=== PATIENT | male | born 1965 | race Caucasian/White ===

== ENCOUNTER 2018-11-20 16:32 | Observation (INO) | payer BC, OTHER ==
[~2018-11-20] VITALS: Ht 182.9 cm; Wt 60.2 kg
[~2018-11-20 16:32] MED LIST: ALBU8.5H8 INH; KEN1O TOP
[2018-11-20] MEDS ORDERED: ASPIRIN 81 MG TAB PO STA (17:10)
[2018-11-20] MEDS ORDERED: NITROGLYCERIN 2% 1 GM OINT PKT TD STA (17:10)
[2018-11-20] MEDS ORDERED: NITROGLYCERIN (SL) 0.4 MG TAB SL PRN (17:30)
[2018-11-20] MEDS ORDERED: ACETAMINOPHEN 325 MG TAB PO ONE (20:00)
[2018-11-20] MEDS ORDERED: ONDANSETRON 4 MG INJ IV PRN (20:30)
[2018-11-20] MEDS ORDERED: ACETAMINOPHEN 325 MG TAB PO PRN (20:30)
--- NOTE | 2018-11-20 20:50 | ERD ---
ER Documentation Chief Complaint Chief Complaint CHEST PAIN - SENT BY PCP FOR EVALUATION HPI Patient is a 53-year-old male with coronary disease who presents with chest pain. He said that he has had chest pain for the past 3 to 4 days. He describes it as a 6 out of 10. He tried Motrin. The pain is been constant and left-sided. He feels like it is a pinching type pain. He was sent by his primary doctor for chest pain and admission. He does not member the name of the doctor. ROS All systems reviewed and are negative except as per history of present illness. Medications Home Meds Reported Medications Albuterol Sulfate* (Proair HFA*) 8.5 Gm Hfa.aer.ad, 2 PUFF INH Q4, INH 05/05/15 Triamcinolone Acetonide* (Kenalog*) 0.1%-15GM Oint, 1 APPLIC TOP BID PRN for ITCHING, EA 05/05/15 Allergies Allergies: Coded Allergies: No Known Allergy (Unverified , 05/05/15) PMhx/Soc History of Surgery: Yes (APPENDECTOMY, HERNIA) Anesthesia Reaction: No Hx Neurological Disorder: No Hx Respiratory Disorders: Yes (ASTHMA) Hx Cardiac Disorders: Yes ("HEART ATTACK") Hx Psychiatric Problems: No Hx Miscellaneous Medical Probl: No Hx Alcohol Use: No Hx Substance Use: No Hx Tobacco Use: Yes (FORMER) Smoking Status: Current some day smoker FmHx Family History: coronary disease Physical Exam Vitals Vital Signs Date Temp Pulse Resp B/P (MAP) Pulse Ox O2 O2 Flow FiO2 Time Delivery Rate 11/20/18 88 19 114/84 98 Room Air 19:18 (94) 11/20/18 107 16 149/99 99 Room Air 17:08 (116) 11/20/18 97.8 93 16 125/70 97 17:01 (88) Physical Exam Const: No acute distress Head: Atraumatic Eyes: Normal Conjunctiva ENT: Normal External Ears, Nose and Mouth. Neck: Full range of motion. No meningismus. Resp: Clear to auscultation bilaterally Cardio: Regular rate and rhythm, no murmurs Abd: Soft, non tender, non distended. Normal bowel sounds Skin: No petechiae or rashes Back: No midline or flank tenderness Ext: No cyanosis, or edema Neur: Awake and alert Psych: Normal Mood and Affect Result Diagram: 5/24/19 1737 11/20/18 1737 Results 24 hrs Laboratory Tests Test 11/20/18 17:37 White Blood Count 6.7 10^3/ul Red Blood Count 5.23 10^6/ul Hemoglobin 14.6 g/dl Hematocrit 43.7 % Mean Corpuscular Volume 83.6 fl Mean Corpuscular Hemoglobin 27.9 pg Mean Corpuscular Hemoglobin Concent 33.4 g/dl Red Cell Distribution Width 14.6 % Platelet Count 244 10^3/UL Mean Platelet Volume 9.6 fl Immature Granulocytes % 0.400 % Neutrophils % 66.3 % Lymphocytes % 20.2 % Monocytes % 7.6 % Eosinophils % 4.8 % Basophils % 0.7 % Nucleated Red Blood Cells % 0.0 /100WBC Immature Granulocytes # 0.030 10^3/ul Neutrophils # 4.5 10^3/ul Lymphocytes # 1.4 10^3/ul Monocytes # 0.5 10^3/ul Eosinophils # 0.3 10^3/ul Basophils # 0.1 10^3/ul Nucleated Red Blood Cells # 0.0 10^3/ul Sodium Level 143 mmol/L Potassium Level 4.0 mmol/L Chloride Level 108 mmol/L Carbon Dioxide Level 27 mmol/L Anion Gap 8 Blood Urea Nitrogen 16 mg/dl Creatinine 0.75 mg/dl Est Glomerular Filtrat Rate mL/min > 60 mL/min Glucose Level 95 mg/dl Calcium Level 9.2 mg/dl Troponin I < 0.012 ng/ml Current Medications Medications Dose Sig/Tommie Start Time Status Last (Trade) Ordered Route PRN Stop Time Admin Dose Reason Admin Aspirin 162 mg ONCE STAT 11/20/18 DC 11/20/18 (Aspirin) PO 17:10 17:24 11/20/18 17:11 1 inch ONCE STAT 11/20/18 DC 11/20/18 Nitroglycerin TD 17:10 17:24 11/20/18 17:11 (Nitroglyceri n 2% Oint) 1 tab Q5M UP TO 3 11/20/18 11/20/18 Nitroglycerin DOSES PRN 17:30 17:25 SL .CHEST (Nitroglyceri PAIN n (Sl Tab) 0.4 Mg) 650 mg ONCE ONCE 11/20/18 DC 11/20/18 Acetaminophen PO 20:00 20:00 (Tylenol 11/20/18 20:01 Tab) Ondansetron 4 mg ER BRIDGE 11/20/18 HCl (Zofran PRN IV 20:30 Inj) NAUSEA/VOMITI 11/21/18 20:29 NG 650 mg ER BRIDGE 11/20/18 Acetaminophen PRN PO 20:30 (Tylenol .MILD PAIN 11/21/18 20:29 Tab) 1-3 OR TEMP Procedures/MDM EKG #1 read by me: Rate/Rhythm: Regular rate and rhythm at a normal rate Intervals: Normal Impression: ST segment flattening in leads II, III and aVF EKG #2 read by me: Rate/Rhythm: Regular rate and rhythm at a normal rate Intervals: Normal Impression: ST segment flattening in leads II, III and aVF Chest x-ray read by radiology. Smoking Cessation Therapy: Pt. was lectured for greater than 3 minutes on the health risks of continued smoking and the benefits of cessation. Patient is a 53-year-old male with coronary disease and smoking who presents with chest pain. His EKGs are abnormal. I spoke with Dr. Becerril with the initial EKG and we do not think that the patient needs to go directly to the [facility]. Patient's initial troponin was negative. He will need admission for acute coronary syndrome work-up. I spoke with Dr. Cabrera for admission to a telemetry observation bed. I doubt pneumonia, pneumothorax, pulmonary embolism, or aortic dissection. Departure Diagnosis: Primary Impression: Chest pain Chest pain type: unspecified Qualified Codes: R07.9 - Chest pain, unspecified Condition: NOAH Munguia MD November 20, 2018 20:50
[2018-11-20 22:25] VITALS: PULSE 87
[2018-11-20 23:00] VITALS: BP 112/74; PULSE 88; RESP 18
[2018-11-20] MEDS ORDERED: ZOLPIDEM 5 MG TAB PO PRN (23:00)
[2018-11-20] MEDS: ACETAMINOPHEN 325 MG TAB PO PRN (23:33)
[2018-11-20] MEDS ORDERED: morphine 2 MG INJ IV ONE (23:50)
[2018-11-21] VITALS: PULSE 81
[2018-11-21 04:00] VITALS: PULSE 92
[2018-11-21] MEDS: ACETAMINOPHEN 325 MG TAB PO PRN (06:46)
[2018-11-21 07:28] VITALS: BP 128/63; PULSE 90; RESP 16
[2018-11-21 08:00] VITALS: PULSE 98
[2018-11-21 11:18] VITALS: BP 122/81; PULSE 90; RESP 18
--- NOTE | 2018-11-21 11:25 | PDOCDIS ---
Discharge Instructions CONDITION [id number] Patient Condition: [id number] Good HOME CARE INSTRUCTIONS: [id number] Diet Instructions: [id number] Regular ACTIVITY: [id number] Activity Restrictions: [id number] No Restrictions FOLLOW UP/APPOINTMENTS Follow-up Plan pcp 1 week BEAN NGUYEN MD November 21, 2018 11:24
[2018-11-21 12:00] VITALS: PULSE 99
--- NOTE | 2018-11-21 13:18 | HP ---
DATE OF ADMISSION: 11/20/2018 REASON FOR VISIT: Abnormal EKG. HISTORY OF PRESENT ILLNESS: A 53-year-old male with unremarkable past medical history who was referr ed to emergency room by his primary care provider. The patient reports pinching chest discomfort on and off for the last few days prior to admission. He denies chest pressure or heaviness. No shortne ss of breath. No nausea, vomiting or diaphoresis. No exertional symptoms. The concern was that EKG was read as an acute STEMI. This was reviewed by Dr. Becerril. There was no evidence of a STEMI an d no need for emergent intervention. Interestingly, patient had similar presentation in 2014 when the EKG was read as an acute STEMI. At t hat time and he was transferred [facility] to [facility]. He underwent coronary angiography and found to have completely clean coronaries. At the time of my visi t, the patient denied any chest pain. Serial troponins have been normal x4. PAST MEDICAL HISTORY: None. SOCIAL HISTORY: The patient lives at home. He smokes about 8 to 10 cigarettes a day. MEDICATIONS PRIOR TO ADMISSION: None. PHYSICAL EXAMINATION: GENERAL: Well-developed, well-nourished male who is in no apparent distress. VITAL SIGNS: Stable. He is afebrile. HEENT: Extraocular muscles intact. Pupils are equal and reactive to light bilaterally. Sclerae are anicteric. Oropharynx is clear and moist. NECK: Supple, no JVD, no carotid bruits. LUNGS: Clear to auscultation bilaterally. CARDIAC: Regular rate and rhythm. No murmurs, rubs or gallops. ABDOMEN: Soft, nontender, nondistended, normoactive bowel sounds. EXTREMITIES: No clubbing, cyanosis, or edema. NEUROLOGICAL: Grossly nonfocal. Two EKGs showed normal sinus rhythm with ST segment flattening in leads II, III and aVF. There was no evidence of ST elevation. ASSESSMENT: 1. A 53-year-old male with atypical chest pain. 2. Chronically abnormal EKG with no clinical evidence of coronary artery disease. 3. Chronic smoker. PLAN: 1. Place in tele observation. 2. Cancel nuclear stress test. 3. Regular diet. 4. Discharge planning. Plan of care was discussed with Dr. Becerril who is in agreement. Dictated By: BEAN MUNOZ/VIPUL Conf#: [id number] DID#: [id number] CC: BEAN NGUYEN MD;*EndCC*
--- NOTE | 2018-11-22 02:55 | DS ---
DATE OF ADMISSION: 11/20/2018 DATE OF DISCHARGE: 11/21/2018 DISCHARGE DIAGNOSES: 1. Atypical chest pain. 2. Abnormal EKG with no clinical evidence of coronary artery disease. 3. Chronic smoker. HOSPITAL COURSE: A 53-year-old male was referred to emergency room by his primary care provider for abnormal EKG. The patient has had sharp chest pain, on and off, for the last few days prior to admis jennifer. Acute LA was ruled out. EKG was reviewed by Dr. Becerril. There was no evidence of STEMI. T he patient had presented in 2014 with similar symptoms, and at that time, the EKG was also abnormal. The patient was taken to the animal laboratory helper in 2014 and found to have completely clean coronaries. He is in a stable condition for discharge. He was strongly advised to quit smoking. The patient will foll ow up with his primary care provider. Discharge planning was discussed with Dr. Becerril. Dictated By: BEAN MUNOZ/VIPUL Conf#: [id number] DID#: [id number]
== END 2018-11-21 13:30 | disposition home or self-care (01) ==
LOC: E/R 16:32 → TEL 20:20
PROVIDERS: ADMIT Internal Medicine; ATTEND Internal Medicine
DX: R07.89 Other chest pain (principal); R94.31 Abnormal electrocardiogram [ECG] [EKG]; F17.210 Nicotine dependence, cigarettes, uncomplicated; J45.909 Unspecified asthma, uncomplicated
CPT/HCPCS: 36415; 71045; 80048; 82550; 82553; 84484; 85025; J2270; Z7500; Z7502; Z7610; G0378